=== PATIENT | male | born 1955 | race Caucasian/White ===

== ENCOUNTER 2016-05-28 12:52 | Emergency (ER) | payer MEDICAID ==
[~2016-05-28] VITALS: Ht 177.8 cm; Wt 102.5 kg
[2016-05-28 12:55] VITALS: BP_SYST 159
--- NOTE | 2016-05-28 12:55 | NUR ---
BROUGHT BACK TO BED #3 AND TRIAGED. REPORT GIVEN TO DAIJA
--- NOTE | 2016-05-28 13:00 | NUR ---
PT. TO ER FOR SKIN RASH TO HIS RIGHT HIP AND THIGH AREA FOR THREE DAYS, STATES PAIN COMES AND GOES, PAIN 5/10 AT THIS TIME, SKIN RED AND WARM TO TOUCH, NOT ITCHY AT THIS TIME, DENIES TAKING ANY MEDICATIONS AT THIS TIME, NO OTHER COMPLAINTS
--- NOTE | 2016-05-28 13:10 | NUR ---
DR DOWNS EVALUATING PT AT THIS TIME
[2016-05-28 13:30] VITALS: BP_SYST 117
[2016-05-28] MEDS ORDERED: KETOROLAC TROMETHAMINE 60 MG/2 ML VIAL IM ONE (13:30)
[2016-05-28] MEDS ORDERED: valACYclovir HCL 500 MG TABLET PO ONE (13:30)
--- NOTE | 2016-05-28 13:30 | NUR ---
Patient given written and verbal discharge instructions and verbalizes understanding. ER MD DR. DOWNS discussed with patient the results and treatment provided. Patient in stable condition. ID arm band removed. Rx of VALTREX NORCO IBUPROFEN given. Patient educated on pain management and to follow up with PMD. Pain Scale 0/10 Opportunity for questions provided and answered.
== END 2016-05-28 13:30 | disposition home or self-care (01) ==
LOC: SED 12:52
DX: B02.9 Zoster without complications (principal); R03.0 Elevated blood-pressure reading, without diagnosis of hypertension
CPT/HCPCS: 96372; 99283; J1885